=== PATIENT | female | born 1990 | race Caucasian/White ===

== ENCOUNTER 2017-08-03 13:24 | Emergency (ER) | payer OTHER ==
[2017-08-03 13:32] VITALS: BP 113/72
--- NOTE | 2017-08-03 14:11 | XRAY Preliminary Report ---
Exam: XR ANKLE 3 VIEW RT IMPRESSION: No acute osseous abnormality. [facility] SITE ID: [id number]
--- NOTE | 2017-08-03 14:11 | XRAY Report ---
EXAM: RIGHT ANKLE RADIOGRAPHY EXAM DATE: 08/03/2017 01:55 PM. CLINICAL HISTORY: Injury. COMPARISON: None. TECHNIQUE: 3 views. FINDINGS: Bones: No fracture or bone lesion. Joints: Probable small tibiotalar effusion. No subluxations. The ankle mortise is normally aligned. Soft Tissues: Mild soft tissue swelling laterally. IMPRESSION: No acute osseous abnormality. [facility] Referring Provider Line: [phone] SITE ID: [id number]
[2017-08-03] MEDS ORDERED: IBUPROFEN 800 MG TABLET PO STA (15:03)
--- NOTE | 2017-08-03 15:07 | ED Physician Documentation ---
PD HPI LOWER EXT INJURY - Stated complaint Stated Complaint: ANKLE INJURY - Chief complaint Chief Complaint: Ext Problem - History obtained from History obtained from: Patient - History of Present Illness PD HPI LOW EXT INJURY LOCATION: Right, Ankle Type of injury: Twist Where injury occurred: Park Timing - onset: How many hours ago (1) Worsened by: Moving, Palpating Associated symptoms: Swelling Similar symptoms before: Has not had sx before - Additional information Additional information: The patient is a 27-year-old female who twisted her right ankle while playing volleyball about 1 hour prior to arrival. She denies any other injuries. She has no prior history of ankle injury. She arrives via ambulance with an ankle splint applied. Review of Systems Constitutional: denies: Fever Respiratory: denies: Dyspnea Skin: denies: Abrasion (s) Musculoskeletal: reports: Joint pain (Right ankle.). denies: Neck pain, Back pain Neurologic: denies: Focal weakness, Numbness, Headache PD PAST MEDICAL HISTORY - Past Medical History Past Medical History: No - Past Surgical History Past Surgical History: Yes - Present Medications Home Medications: Ambulatory Orders Medication Instructions Recorded Confirmed Ibuprofen 600 mg PO TID PRN #30 tablet 08/03/17 Multivit with Calcium,Iron,Min 1 tab PO DAILY 08/03/17 08/03/17 [Multiple Vitamins For Women] - Allergies Allergies/Adverse Reactions: Allergies Allergy/AdvReac Type Severity Reaction Status Date / Time Penicillins Allergy Rash Verified 08/03/17 13:32 - Social History Does the pt smoke?: No Smoking Status: Never smoker Does the pt drink ETOH?: Yes ETOH Use: Wine Does the pt have substance abuse?: No - Immunizations Immunizations are current?: Yes - POLST Patient has POLST: No PD ED PE NORMAL - Vitals Vital signs reviewed: Yes (normal) - General General: Alert and oriented X 3, Well developed/nourished - HEENT HEENT: Atraumatic - Neck Neck: No bony TTP - Respiratory Respiratory: No respiratory distress - Derm Derm: No rash - Extremities Extremities: Other (There is soft tissue swelling at the lateral aspect of the right ankle, with associated tenderness to palpation, including the posterior aspect of the lateral malleolus. There is no tenderness to palpation at the fifth metatarsal base, the proximal fibula, or the medial malleolus. Distal neurovascular is intact.). No: No calf tenderness / cord - Neuro Neuro: Alert and oriented X 3, No motor deficit, No sensory deficit Results - Vitals Vitals: Oxygen O2 Source Room air - Rads (name of study) Right ankle Radiology: Prelim report reviewed, EMP read contemporaneously, See rad report ( No acute osseous abnormality.) PD MEDICAL DECISION MAKING - ED course Complexity details: reviewed results, re-evaluated patient, considered differential, d/w patient ED course: The patient's presentation is most consistent with ankle sprain. There is no evidence of fracture or dislocation on x-ray examination. Treatment in the emergency department included administration of ibuprofen 800 mg orally and application of an ankle air splint. Crutches were dispensed. I discussed with her the expected course of injury, symptomatic treatment and outpatient follow- up, as well as potentially worrisome signs or symptoms that should prompt reevaluation in the emergency department. Departure - Departure Disposition: 01 Home, Self Care Clinical Impression: Right ankle sprain Qualifiers: Encounter type: initial encounter Involved ligament of ankle: calcaneofibular ligament Qualified Code(s): S93.411A - Sprain of calcaneofibular ligament of right ankle, initial encounter Condition: Stable Instructions: ED Sprain Ankle W X Ray Follow-Up: [facility] Andersonpam [facility] [Provider Group] Prescriptions: Ibuprofen 600 mg PO TID PRN #30 tablet PRN Reason: Pain Comments: Keep your right leg elevated as much of the time as possible. Apply ice pack intermittently for the next 3 days. You can use ibuprofen up to 600 mg 3 times daily if needed for pain. Use the ankle air splint and crutches when ambulating. Follow up with your primary physician within 1 week. Call to schedule an appointment. Return to the emergency department if you develop markedly increasing pain or swelling, or otherwise worsening symptoms. Forms: Activity restrictions Discharge Date/Time: 08/03/17 15:30
== END 2017-08-03 15:30 | disposition home or self-care (01) ==
LOC: ED 13:24
DX: S93.411A Sprain of calcaneofibular ligament of right ankle, initial encounter (principal); X50.1XXA Overexertion from prolonged static or awkward postures, initial encounter; Y93.68 Activity, volleyball (beach) (court); Y92.830 Public park as the place of occurrence of the external cause
CPT/HCPCS: 73610; 99283; A9270